=== PATIENT | female | born 1985 | race Caucasian/White ===

== ENCOUNTER 2018-06-30 20:40 | Inpatient (IN) | payer BC ==
[~2018-06-30] VITALS: Ht 167.6 cm; Wt 78.5 kg
--- NOTE | ~2018-06-30 | EKG ---
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 07/01/18 08 47 47 Albert Briones MD, FACC /EPI
--- NOTE | ~2018-06-30 | 2DMMODE ---
[facility] [address] [place] [address] 2 D/M-MODE ECHOCARDIOGRAM Name: TERESSA SHEPPARD Room #: 421-P ADM IN M.R.#: [id number] Admission: 06/30/18 Attend Phys: Edinson Cortes Discharge: Date of : 89 Date of Service: 07/05/18 1406 Report #: [id number] THIS REPORT FOR: //name// APPROVED REPORT Study performed: 07/05/2018 10:38:00 EXAM: Comprehensive 2D, Doppler, and color-flow Echocardiogram Patient Location: Echo lab Room #: 421 Status: routine BSA: 1.88 HR: 67 bpm BP: 121/69 mmHg Rhythm: NSR Other Information Study Quality: Good Indications Pulmonary edema. 2D Dimensions RVDd: 26.36 mm IVSd: 9.75 (7-11mm) LVOT Diam: 17.83 (18-24mm) LVDd: 36.24 mm PWd: 8.55 (7-11mm) LVDs: 24.90 (25-40mm) Aortic Root: 26.87 mm Volumes Left Atrial Volume (Systole) Single Plane 4CH: 14.39 mL Single Plane 2CH: 17.90 mL LA ESV Index: 10.00 mL/m2 Aortic Valve AoV Peak Jonatan.: 1.15 m/s AO Peak Gr.: 5.25 mmHg LVOT Max P.90 mmHg LVOT Max V: 1.11 m/s EVA Vmax: 2.41 cm2 Mitral Valve E/A Ratio: 1.1 MV Decel. Time: 199.29 ms MV E Max Jonatan.: 0.62 m/s [facility] [address] [place] [address] 2 D/M-MODE ECHOCARDIOGRAM Name: TERESSA SHEPPARD Room #: 421-P [facility] IN [facility]#: [id number] Admission: 06/30/18 Attend Phys: Edinson Rogel Dec Discharge: Date of : 89 Date of Service: 07/05/18 1406 Report #: [id number] MV A Jonatan.: 0.55 m/s MV PHT: 57.79 ms IVRT: 69.20 ms Pulmonary Valve PV Peak Jonatan.: 0.91 m/s PV Peak Gr.: 3.33 mmHg Pulmonary Vein P Vein S: 0.72 m/s P Vein D: 0.70 m/s P Vein S/D Ratio: 1.03 Tricuspid Valve TR Peak Jonatan.: 1.77 m/s RAP Estimate: 5.00 mmHg TR Peak Gr.: 12.49 mmHg PA Pressure: 17.00 mmHg Left Ventricle The left ventricle is normal size. There is normal LV segmental wall motion. There is normal left ventricular wall thickness. Left ventricular systolic function is normal. LVEF is 65%. The left ventricular diastolic function is normal. Right Ventricle The right ventricle is normal size. The right ventricular systolic function is normal. Atria The left atrium size is normal. The right atrium size is normal. Aortic Valve The aortic valve is normal in structure. No aortic regurgitation is present. There is no aortic valvular stenosis. Mitral Valve The mitral valve is normal in structure. Trace mitral regurgitation. No evidence of mitral valve stenosis. Tricuspid Valve The tricuspid valve is normal in structure. Trace tricuspid regurgitation. Estimated PAP is 17mmHg. Pulmonic Valve The pulmonary valve is normal in structure. Trace pulmonic regurgitation. [facility] [place] [address] 2 D/M-MODE ECHOCARDIOGRAM Name: TERESSA SHEPPARD Room #: 421-P [facility] IN M.R.#: [id number] Admission: 06/30/18 Attend Phys: Edinson Cortes Discharge: Date of : 89 Date of Service: 07/05/181405 Report #: [id number] Great Vessels The aortic root is normal in size. IVC is normal in size and collapses >50% with inspiration. Pericardium There is no pericardial effusion. <Conclusion> 1. Normal echocardiogram with Doppler. EF 65% 2. No pericardial effusion <ELECTRONICALLY SIGNED> By: Albert Briones MD, FACC 07/05/18 1406 05 1406 Albert Briones MD, FACC /INF
--- NOTE | ~2018-06-30 | EKG ---
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
--- NOTE | ~2018-06-30 | HC ---
[facility] [address] [place] [address] CONSULTATION Name: TERESSA SHEPPARD Room #: 421-P [facility] IN M.R.#: [id number] Admission: 06/30/18 Attend Phys: Edinson Babcock Discharge: Date of : 89 Report #: [id number] THIS REPORT FOR: //name// CC: DAMIEN physician/PCP Edinson Babcock CARDIOLOGY CONSULTATION REASON FOR CONSULTATION: Possible cardiac arrest. HISTORY OF PRESENT ILLNESS: The patient is a 32-year-old female with history of diabetes, asthma, anxiety, attention deficit disorder and possibly some drug use in the past who was in her usual state of health. She had seen her mother at around 07:00 p.m., was doing well and had to go back to work and apparently, she was going to eat some pumpkin bread or was eating that. Then, the rest she does not know what happened. She reports that she was found down by her coworker and she was apparently blue. CPR was then performed. It is unclear if a defibrillator was placed and she was potentially shocked back from rhythm. She was brought here after being intubated by EMS. Apparently when EMS found her, she had a pulse, was tachycardic and she was in somewhat respiratory distress. Prior to intubation, she was found to have some food in her mouth and they thought maybe she had aspirated. She was placed in the ICU. There was suspicion that potentially she had a drug overdose and had developed an aspiration pneumonia. Her urine drug screen was positive for opiates, amphetamines, benzos and marijuana, but no cocaine. She had a lactate of 2.7. Her troponin was negative. EKG showed sinus rhythm, with no ischemic changes. Potassium was 3.4, creatinine is 1.4. CT of the head was normal. CT of the chest showed some bilateral infiltrates. She was eventually extubated and is now on the Step-Down Unit. She denies any chest pain. She denies any shortness of breath, PND, orthopnea or prior syncopal episodes. PAST MEDICAL HISTORY: As reviewed above. SOCIAL HISTORY: There is some mention of some IV drug abuse in the past. There is also mention the boyfriend says that she was taking too much oxycodone and had recently stopped taking this. 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 ALLERGIES: Reviewed. MEDICATIONS: Reviewed and include Adderall, Xanax, ProAir, Imitrex and Percocet. REVIEW OF SYSTEMS: A 12-point review of systems was performed and was negative, other than what I mentioned above. PHYSICAL EXAMINATION: [facility] [address] [place] [address] CONSULTATION Name: [facility] Room #: [facility] IN M.R.#: [id number] Admission: 06/30/18 Attend Phys: Edinson Babcock Discharge: Date of : 89 Report #: [id number] VITAL SIGNS: Temperature is 36.7, pulse 108, respiratory rate 12, blood pressure 145/82 and sats 100%. GENERAL: She is in no acute distress. HEENT: Oropharynx is clear. CARDIOVASCULAR: There is regular rate and rhythm. LUNGS: Clear to auscultation bilaterally. ABDOMEN: Soft, nontender and nondistended. No hepatosplenomegaly. EXTREMITIES: There is no clubbing, cyanosis or edema. NEUROLOGIC: Cranial nerves 2-12 are intact. LABORATORY DATA: White count 11, hemoglobin 11 and platelets 181,000. Chemistry: Sodium 141, potassium 3.8 and creatinine 0.7. Mag 1.7. Toxicology as reviewed below. Positive for MRSA. Chest x-ray shows bilateral infiltrates. EKG shows normal sinus rhythm, with no ischemic changes. Telemetry shows sinus rhythm, with no arrhythmias. ASSESSMENT: 1. Possible arrest. 2. Aspiration pneumonia. PLAN: In summary, the patient is a 32-year-old who was found unresponsive. The etiology of this arrest is unclear. This could have been a respiratory arrest as it sounds like she was found to have a pulse by EMS. There has not been any arrhythmias noted since she has been here. Her initial troponin was negative. An echocardiogram has yet to be performed. I recommend that we obtain an echocardiogram to evaluate her LV size and function. We will also speak with the nurse who found her at her work. In terms of heart failure, we will obtain an echocardiogram, but these chest x-ray findings could be related to the aspiration as well. We will continue to follow. By: 1222 0055 Connor Montes De Oca MD /nt
[2018-06-30 20:41] VITALS: BP 106/59
[2018-06-30 20:54] LABS: BASOPHILS 0.5 % (0.0-2.0); EOSINOPHILS 0.6 % (0.0-3.0); HEMATOCRIT 41.5 % (37.0-47.0); HEMOGLOBIN 14.1 gm/dL (12.0-15.0); LYMPHOCYTES 27.8 % (24.0-44.0); MCH 31.2 pg (26.0-34.0); MCV 91.8 fL (80.0-100.0); MONOCYTES 4.6 % (1.0-8.0); PLATELET COUNT 310 thou/uL (150-400); POLYS 66.5 % (36.0-66.0); RBC 4.53 mil/uL (4.20-5.00); RDW 13.1 % (10.5-14.5); WBC 10.4 thou/uL (4.0-11.0)
[2018-06-30 21:01] LABS: ANION GAP 12 mmol/L (7-16); BUN 15 mg/dL (7-18); CALCIUM 8.8 mg/dL (8.5-10.1); CHLORIDE 102 mmol/L (98-107); CO2 22 mmol/L (21-32); CREATININE 1.4 mg/dL (0.6-1.0); GLUCOSE 288 mg/dL (74-106); POTASSIUM 3.4 mmol/L (3.5-5.1); SODIUM 136 mmol/L (136-145)
[2018-06-30 21:10] LABS: TROPONIN-I <0.06 ng/mL (<0.06)
[2018-06-30 21:23] LABS: BE(vivo) -6.8 mmol/L (-2 to +3); HCO3 20.9 mmol/L (22.0-26.0); PO2 89.1 mmHg (80.0-100.0); sO2 95.2 % (92.0-98.0)
[2018-06-30 21:24] LABS: pH 7.238 (7.360-7.450)
[2018-06-30 21:39] LABS: URINE BILIRUBIN NEGATIVE (Negative); URINE BLOOD NEGATIVE (Negative); URINE CLARITY CLEAR; URINE COLOR YELLOW; URINE GLUCOSE-RANDOM* NEGATIVE (Negative); URINE KETONES NEGATIVE (Negative); URINE LEUKOCYTES-REFLEX NEGATIVE (Negative); URINE NITRITE-REFLEX NEGATIVE (Negative); URINE PROTEIN (DIPSTICK) 2+ (Negative); URINE SPECIFIC GRAVITY >= 1.030 (1.005-1.035); URINE UROBILINOGEN 0.2 E.U./dl (0.2-1.0)
[2018-06-30 21:48] LABS: AMP/METHAMP POSITIVE (Negative); BARBITURATES Negative (Negative); BENZODIAZEPINES POSITIVE (Negative); COCAINE Negative (Negative); METHADONE Negative (Negative); OPIATES POSITIVE (Negative); PCP Negative (Negative)
[2018-06-30 21:51] LABS: AMORPHOUS URATES Many /LPF (None Seen); BACTERIA-REFLEX None Seen /HPF (None Seen); HYALINE CASTS 4-10 Moderate /LPF (None Seen); MUCUS >6 Heavy strn/LPF (None Seen); SQUAMOUS 0-3 Few /LPF (0-3); URINE RBC 0-2 Rare /HPF (0-2); URINE WBC-REFLEX 0-5 Rare /HPF (0-5)
[2018-06-30 23:15] VITALS: BP 115/72
[2018-06-30 23:30] VITALS: BP 113/71; BP 115/80
[2018-06-30 23:45] VITALS: BP 119/84
[2018-07-01] VITALS (22 sets, daily range): BP systolic 108–134; BP diastolic 56–94
[2018-07-01 00:39] LABS: CALCIUM 7.9 mg/dL (8.5-10.1); HEMATOCRIT 41.6 % (37.0-47.0); HEMOGLOBIN 14.1 gm/dL (12.0-15.0); MCH 31.3 pg (26.0-34.0); MCHC 33.9 g/dL (28.0-37.0); MCV 92.4 fL (80.0-100.0); RBC 4.51 mil/uL (4.20-5.00); RDW 12.9 % (10.5-14.5); WBC 11.9 thou/uL (4.0-11.0)
[2018-07-01 00:41] LABS: POTASSIUM 4.4 mmol/L (3.5-5.1)
[2018-07-01 19:29] LABS: BE(vivo) -6.9 mmol/L (-2 to +3); HCO3 16.5 mmol/L (22.0-26.0); PCO2 26.8 mmHg (35.0-45.0); PO2 295.2 mmHg (80.0-100.0); pH 7.406 (7.360-7.450); sO2 99.7 % (92.0-98.0)
[2018-07-02] VITALS (20 sets, daily range): BP systolic 107–142; BP diastolic 60–96
[2018-07-02 07:24] LABS: HEMATOCRIT 30.9 % (37.0-47.0); MCH 31.4 pg (26.0-34.0); MCHC 34.2 g/dL (28.0-37.0); MCV 91.9 fL (80.0-100.0); RBC 3.36 mil/uL (4.20-5.00); WBC 11.4 thou/uL (4.0-11.0)
[2018-07-02 07:25] LABS: HEMOGLOBIN 10.6 gm/dL (12.0-15.0)
[2018-07-02 07:30] LABS: CALCIUM 8.4 mg/dL (8.5-10.1); CREATININE 0.8 mg/dL (0.6-1.0); POTASSIUM 3.7 mmol/L (3.5-5.1)
[2018-07-02 11:18] LABS: BE(vivo) -7.3 mmol/L (-2 to +3); HCO3 17.9 mmol/L (22.0-26.0); PO2 197.1 mmHg (80.0-100.0); sO2 99.3 % (92.0-98.0)
[2018-07-02 11:19] LABS: pH 7.327 (7.360-7.450)
[2018-07-03] VITALS (14 sets, daily range): BP systolic 142–181; BP diastolic 75–117
[2018-07-03 05:53] LABS: HEMATOCRIT 33.4 % (37.0-47.0); HEMOGLOBIN 11.6 gm/dL (12.0-15.0); MCH 31.7 pg (26.0-34.0); MCHC 34.9 g/dL (28.0-37.0); RBC 3.67 mil/uL (4.20-5.00); WBC 11.3 thou/uL (4.0-11.0)
[2018-07-03 06:06] LABS: CALCIUM 8.7 mg/dL (8.5-10.1); CREATININE 0.7 mg/dL (0.6-1.0); MAGNESIUM 1.7 mg/dL (1.8-2.4); POTASSIUM 3.8 mmol/L (3.5-5.1); TOTAL BILIRUBIN 1.1 mg/dL (<0.1-1.0); TOTAL PROTEIN 6.7 g/dL (6.4-8.2)
[2018-07-03 08:12] LABS: TRICYCLIC (TCA) CONFIRMATION Negative ng/mL (Cutoff=100)
[2018-07-03] MEDS ORDERED: DEXTROAMP-AMPHE30 MG (08:34)
[2018-07-04 04:28] VITALS: BP 151/85
[2018-07-04 11:10] VITALS: BP 145/82
[2018-07-04 20:31] VITALS: BP 124/61
[2018-07-05 03:33] VITALS: BP 121/69
[2018-07-05 03:35] VITALS: BP 121/69
[2018-07-05 04:01] LABS: HEMATOCRIT 38.8 % (37.0-47.0); HEMOGLOBIN 13.1 gm/dL (12.0-15.0); MCH 30.4 pg (26.0-34.0); MCHC 33.8 g/dL (28.0-37.0); MCV 89.8 fL (80.0-100.0); RBC 4.32 mil/uL (4.20-5.00); RDW 12.8 % (10.5-14.5); WBC 10.9 thou/uL (4.0-11.0)
[2018-07-05 04:20] LABS: ALBUMIN 3.7 g/dL (3.4-5.0); CALCIUM 9.9 mg/dL (8.5-10.1); CREATININE 0.7 mg/dL (0.6-1.0); PHOSPHORUS 4.8 mg/dL (2.5-4.9); POTASSIUM 3.6 mmol/L (3.5-5.1)
[2018-07-05 16:46] VITALS: BP 101/63
[2018-07-05 20:00] VITALS: BP 118/72
[2018-07-06 07:34] VITALS: BP 117/66
[2018-07-06] MEDS ORDERED: AUGMENTIN 875-1 EACH PO (10:24)
[2018-07-06 10:36] VITALS: BP 117/66
== END 2018-07-06 11:35 | disposition home or self-care (01) | DRG 208 ==
LOC: ER 20:40 → ICU 22:34 → EROBS 22:34 → ICU 23:34 → 4E 07-03 14:12 → ENTRNSPT 07-06 11:24 → EDTRNSPTSTS 07-06 11:31 → 4E 07-06 11:35
PROVIDERS: Emergency Medicine; Hospitalist; Nurse Practitioner Family; Pediatrics
PROC: 5A1945Z Respiratory Ventilation, 24-96 Consecutive Hours (ICD-10-PCS; principal; 2018-06-30)
DX: J69.0 Pneumonitis due to inhalation of food and vomit (principal); J96.02 Acute respiratory failure with hypercapnia; J96.01 Acute respiratory failure with hypoxia; I46.9 Cardiac arrest, cause unspecified; N17.9 Acute kidney failure, unspecified; G93.40 Encephalopathy, unspecified; E11.9 Type 2 diabetes mellitus without complications; J45.909 Unspecified asthma, uncomplicated; F41.9 Anxiety disorder, unspecified; R00.0 Tachycardia, unspecified; F90.9 Attention-deficit hyperactivity disorder, unspecified type; Z53.29 Procedure and treatment not carried out because of patient's decision for other reasons; Z79.899 Other long term (current) drug therapy; Z22.322 Carrier or suspected carrier of Methicillin resistant Staphylococcus aureus
CPT/HCPCS: 10078; 10183; 27000